=== PATIENT | female | born 2000 | race Caucasian/White ===

== ENCOUNTER 2024-11-13 10:10 | Emergency (ER) | payer BC, SELFPAY ==
[2024-11-13 10:15] VITALS: BP 132/78
[2024-11-13 11:00] VITALS: BMI 27.3
[2024-11-13 11:13] LABS: Urine Character Clear (Clear)
--- NOTE | 2024-11-13 13:10 | ED.GENMED ---
History of Present Illness
General
Chief Complaint: Back Pain
Time Seen by Provider: 11/13/24 11:30
History of Present Illness
History of Present Illness:
24-year-old female presents to the emergency department for evaluation of several days of nontraumatic left flank area pain. Pain worsens with certain twisting motions of the torso but improves when she is lying on her right side. She denies any
fevers or chills. Pain is worse with deep breathing or with belching. Denies any cough or shortness of breath. Denies any anterior abdominal pain, nausea, or vomiting. Does not take any exogenous hormone use. No leg swelling or calf cramping.
No recent surgical procedures
Review of Systems
Review of Systems
Allergies reviewed?: Yes
All Other Systems: ROS reviewed and negative except as documented in HPI and ROS
Phy Exam
Physical Exam
Physical Exam:
GEN: Well appearing, NAD, WDWN
HEENT: Oral mucosa moist, no scleral icterus
Cardiac: Regular rate and rhythm, no murmurs
Lung: No respiratory distress, no tachypnea, lungs clear to auscultation bilaterally
Abdomen: Soft, grossly nontender, no palpable masses
MSK: No gross deformity or injuries. Reproducible tenderness along the left costovertebral angle. No palpable abnormality. No CVA tenderness to percussion. No midline thoracic or lumbar spine tenderness.
Skin: Good color, no pallor or jaundice, no rashes
Neuro: AO x3, moves all extremities freely
Psych: Calm, cooperative
Course
Orders/Labs/Results
Orders:
Orders
11/13/24 11:05
Urinalysis Reflex To Culture Urgent
Date Specimen was Collected: 11/13/24
Time Specimen was Collected: 10:56
11/13/24 12:28
CR Chest - 2 Views Urgent
Comment:
Reason For Exam: L thoracic back pain
Vital Signs
Initial and Last Documented VS:
Initial Vital Signs
Temp Pulse Resp BP Pulse Ox
98.5 F 79 18 132/78 100
11/13/24 10:15 11/13/24 10:15 11/13/24 10:15 11/13/24 10:15 11/13/24 10:15
Last Documented Vital Signs
Temp Pulse Resp BP Pulse Ox
98.5 F 79 18 132/78 100
11/13/24 10:15 11/13/24 10:15 11/13/24 10:15 11/13/24 10:15 11/13/24 13:10
MDM/Problems Addressed
MDM/Problems Addressed:
Urinalysis is negative for signs of infection or hematuria that would be suspicious for kidney stone. The symptoms are reproducible and predicated by movement. Chest x-ray shows no pulmonary pathology. Suspect MSK
*Pulse Oximetry
SaO2: 100
Oxygen Mode of Delivery: Room air
Patient hypoxic: no
*Critical Care Note
Total Time (30-74mins, 75-104mins- exclusive of procedures): Not Applicable
ED Attending Note
-
Portions of this chart may have been created with voice recognition software.� Occasional wrong word or��sound alike� substitutions may have occurred due to the inherent limitations of voice recognition software.
Discharge Plan
Departure
Patient Disposition: Home (Routine Discharge)
Date of Disposition: 11/13/24
Time of Disposition: 13:10
Patient with high blood pressure during this ER visit?: No
Discharge Problem:
Acute left flank pain
Instructions: Flank pain - ED (DC)
Referrals:
Aracely Gonzales CRNP [Family Provider, Family Practice]
Interventions
Interventions:
*Risk Screen - Suicide Last Done: 11/13/24 13:13
*General Assessment Last Done: 11/13/24 11:00
*Neglect/Abuse Screening Last Done: 11/13/24 10:18
*ED- Fall Risk Assessment Last Done: 11/13/24 11:00
*ED COVID-19 Vaccine History Last Done: 11/13/24 11:00
*Nursing Disposition Last Done: 11/13/24 13:13
ED-Musculoskeletal Assessment Last Done: 11/13/24 11:00
Discharge Date and Time
Discharge Date/Time: 11/13/24 13:16
Print Language: SAMOAN
== END 2024-11-13 13:16 | disposition home or self-care (01) ==
LOC: EMR 10:10
PROVIDERS: EMERGENCY PHYSICIAN Emergency Medicine; FAMILY PHYSICIAN Nurse Practitioner Family
DX: R10.9 Unspecified abdominal pain (principal)
CPT/HCPCS: 99284; 71046; 81003